=== PATIENT | female | born 1980 | race Caucasian/White ===

== ENCOUNTER → 2016-12-13 | Outpatient (CLI) | payer OTHER ==
[~2016-12-13] MED LIST: EFFEXOR XR75 MG PO; MULTI VITAMIN1 EACH PO; NO MEDICATIONS
--- NOTE | ~2016-12-13 | CT2 ---
[facility] A Service of [facility] RADIOLOGY TEXT RESULTS PATIENT: GUILHERME AUSTIN LOCATION: [facility] : 84 UNIT #: [id number] AGE: [address]: Gilberto Wilson III, MD SEX: F ORDER DR: [id number] [facility]. [place], [place] [address] [id number] O MR#: [id number] Acc #: [id number] NAME: GUILHERME AUSTIN : 1980 SEX: F STUDY DATE/TIME: 12/13/2016 15:24 [facility]: STUDY DESCRIPTION: CT Abd and Pelv W Cont Attending Physician: Gilberto Wilson III, M.D. Referring Physician: Gilberto Wilson III, M.D. Ordering Physician: Gilberto Wilson III, M.D. Primary Care Physician: Yi Michaud A.P.R.N. MEDICAL IMAGING REPORT This report is preliminary unless electronic signature is present EXAM CT abdomen and pelvis with IV contrast. DATE 12/13/2016 HISTORY 36-year-old female with acute left upper quadrant abdominal pain for 2 months with vomiting. Laparoscopic gastric band placement March 2015. COMPARISON CT abdomen and pelvis with contrast 05/24/2015. PROCEDURE 5 mm axial images from the lung bases through the lesser trochanters after intravenous contrast administration. Enteric contrast was not administered. Sagittal and coronal reformatted images were obtained. This CT exam was performed with one or more of the following radiation dose reduction techniques: automatic exposure control, adjustment of mA and/or kV according to patient size, and iterative reconstruction. FINDINGS Abdomen findings: Lung bases are clear. Gastric band device appears unchanged in position from 05/24/2015. No evidence of perigastric inflammatory changes. The liver, gallbladder, spleen, pancreas, adrenals and kidneys are normal. The bowel appears nonthickened, nondilated, noninflamed. Pelvis findings: Urinary bladder and rectum normal. Hysterectomy. No pelvic adenopathy or free fluid is identified. The appendix is normal. [facility] A Service of [facility] RADIOLOGY TEXT RESULTS PATIENT: GUILHERME AUSTIN LOCATION: [facility] : [birth year] UNIT #: [id number] AGE: [address]: Gilberto Wilson III, MD SEX: F ORDER DR: No acute osseous abnormalities are identified. IMPRESSION 1. No acute findings in the anterior or pelvis. No CT explanation for the patient's abdominal pain. 2. Gastric band device appears stable in position since 05/24/2015. 3. The appendix is normal. Dictated by... Malena Jones M.D. THIS IS AN ELECTRONICALLY VERIFIED REPORT Malena Jones M.D. at 12/14/2016 9:40 AM [facility]/michael TD: 12/13/2016 19:38 JOB #: [id number] MEDICAL IMAGING REPORT Page 1 of 1 COPY
[2016-12-13 14:25] LABS: POC - CREATININE 0.59 mg/dL (0.44-1.03); POC - GFR >60.0 mL/min (>60)
== END | disposition home or self-care (01) ==
LOC: CCAT 13:33
PROVIDERS: Surgery
DX: R10.12 Left upper quadrant pain (principal); Z98.84 Bariatric surgery status
CPT/HCPCS: 74177; 82565; Q9967